=== PATIENT | male | born 2000 | race Caucasian/White ===

== ENCOUNTER 2022-11-14 08:20 | Emergency (ER) | payer BC ==
[2022-11-14 08:26] VITALS: RESP 20; TEMP 98.2; BMI 28.5
[2022-11-14] MEDS ORDERED: ONDANSETRON 4 MG/2 ML VIAL IVPB ONE (08:31)
[2022-11-14] MEDS ORDERED: ACETAMINOPHEN 1000 MG/100 ML BAG IVPB ONE (08:31)
[2022-11-14] MEDS ORDERED: FAMOTIDINE 20 MG/50 ML IVPB 20 MG in PREMIX 50 IVPB ONE (08:31)
[2022-11-14] MEDS ORDERED: SODIUM CHLORIDE 1,000 ML IV ONE ×2 (08:31→11:32)
[2022-11-14] MEDS ORDERED: ACETAMINOPHEN INJECTION 100 ML IVPB ONE (08:34)
[2022-11-14] MEDS ORDERED: ONDANSETRON 4 MG/2 ML VIAL ONE (08:34)
[2022-11-14] MEDS ORDERED: FAMOTIDINE 20 MG/50 ML IVPB 20 MG/50 ML MG IVPB ONE (08:34)
[2022-11-14 09:15] LABS: HEMATOCRIT 47.4 % (35.4-49); HEMOGLOBIN 16.6 G/dL (11.7-16.9); MCH 30.2 pg (25.7-33.7); MEAN CELL VOLUME 86.2 fl (80-96); PLATELET COUNT 325.2 10^3/uL (134-434); RDW 13.5 % (11.9-15.9); WHITE BLOOD COUNT 7.8 10^3/uL (4.0-10.8)
[2022-11-14 09:20] LABS: ALBUMIN 4.8 g/dl (3.4-5.0); BILIRUBIN,TOTAL 1.9 mg/dl (0.2-1); CALCIUM 9.4 mg/dl (8.5-10); TOT PROT 7.4 g/dl (6.4-8.2)
[2022-11-14 09:34] LABS: PLATELET ESTIMATE ADEQUATE
[2022-11-14 12:52] VITALS: BP 144/73; PULSE 98
== END 2022-11-14 13:28 | disposition home or self-care (01) ==
LOC: FER 08:20
PROC: 3E0333Z Introduction of Anti-inflammatory into Peripheral Vein, Percutaneous Approach (ICD-10-PCS; principal; 2022-11-14)
PROC: 3E033GC Introduction of Other Therapeutic Substance into Peripheral Vein, Percutaneous Approach (ICD-10-PCS; 2022-11-14)
PROC: 3E033GC Introduction of Other Therapeutic Substance into Peripheral Vein, Percutaneous Approach (ICD-10-PCS; 2022-11-14)
PROC: 3E0337Z Introduction of Electrolytic and Water Balance Substance into Peripheral Vein, Percutaneous Approach (ICD-10-PCS; 2022-11-14)
PROC: 3E0337Z Introduction of Electrolytic and Water Balance Substance into Peripheral Vein, Percutaneous Approach (ICD-10-PCS; 2022-11-14)
DX: K52.9 Noninfective gastroenteritis and colitis, unspecified (principal)
CPT/HCPCS: 36415; 80053; 85027; 99284-25